=== PATIENT | male | born 1985 | race Caucasian/White ===

== ENCOUNTER → 2017-06-28 08:32 | Outpatient (CLI) | payer OTHER, SELFPAY ==
--- NOTE | 2017-06-28 08:41 | US_ITS ---
STUDY: SCROTUM ULTRASOUND REASON FOR EXAM: Male, 31 years old. PATIENT HAD AN EPISODE OF TORSION/DETORSION WHILE ON VACATION IN [place]. HE WENT TO E.R.- NO SURGERY WAS DONE. HE STATES THEY SAID HE HAD A MASS. TECHNIQUE: Ultrasound evaluation of the scrotum was performed with color Doppler and static brown-scale imaging. COMPARISON: None. FINDINGS: RIGHT TESTICLE INTRATESTICULAR: There is a normal size of the right testicle. The right testicle measures 3.7X2.2 cm. There is a homogenous echotexture. There is normal arterial and normal venous vascularity. There is no demonstrated right testicular mass or cyst. EXTRATESTICULAR: The epididymis is normal in size. The epididymis head measures 1.3X1.1X1.3 cm. There is normal vascularity of the epididymis. There is a well-defined cystic structure within the epididymis, without internal echoes, consistent with an epididymal cyst. This appears complex with internal septations. This measures 7 x 6 mm. It also appears exophytic. There is a small hydrocele. There is no demonstrated varicocele. There is no demonstrated extratesticular mass or cyst. LEFT TESTICLE INTRATESTICULAR: There is a normal size of the left testicle. The left testicle measures 4.2X3.9X2.5 cm. There is a homogenous echotexture. There is normal arterial and normal venous vascularity. Intratesticular hypoechoic nodule measuring 21 x 17 mm. This may be a focus of previous infarction. It has irregular borders. There are no calcifications. There is no doppler flow within the mass. EXTRATESTICULAR: The epididymis is normal in size. The epididymis head measures 1.2X1.3X1 cm. There is normal vascularity of the epididymis. There is no demonstrated epididymal cystic structure. There is a small hydrocele. There is no demonstrated varicocele. There is no demonstrated extratesticular mass or cyst. US/Testicular with Arterial Flow IMPRESSION: Right epididymal cyst. This appears to be a complex cyst. Small bilateral hydroceles. No evidence for testicular torsion. Mass noted in the left testicle. The patient has a history of a mass. This may be related to prior infarction. However the differential would also include granulomatous orchitis vs intratesticular abscess. Electronically Signed: Sixto Ortega MD at 17:44 EDT , Service support ,
== END ==
PROVIDERS: Family Provider Family Medicine; PCP Family Medicine; Visit Provider Urology
DX: N43.3 Hydrocele, unspecified (principal)
CPT/HCPCS: 76870; 93976

== ENCOUNTER → 2017-07-04 08:59 | Outpatient (CLI) | payer OTHER, SELFPAY ==
[2017-07-04 09:47] LABS: LDH 169 U/L (87-241)
--- NOTE | 2017-07-04 10:49 | CT_ITS ---
STUDY: CT ABDOMEN AND PELVIS WITH AND WITHOUT CONTRAST REASON FOR EXAM: Male, 31 years old. Left testicular mass. RADIATION DOSAGE (If Supplied By Facility): CTDIvol = ( 19.63 ) mGy, DLP = ( 1749.34 ) mGycm TECHNIQUE: Transaxial images were obtained from the dome of the diaphragm to the symphysis pubis with oral contrast. 100 ml of Isovue 300 contrast was administered. Sagittal and coronal images were reconstructed. Individualized dose optimization techniques were used for this CT. COMPARISON: None. FINDINGS: The visualized lung bases are unremarkable. The visualized portions of the heart are within normal limits. Normal liver. Normal gallbladder and extrahepatic biliary system. Normal spleen. Normal pancreas. Normal bilateral adrenal glands. Normal right kidney. Normal left kidney. There is a small hiatal hernia. Normal small intestine. Normal colon. The appendix is visualized and appears normal. Normal abdominal aorta. Normal inferior vena cava. Normal retroperitoneum. Normal urinary bladder. Small bilateral hydroceles. Normal abdominal wall. Normal osseous structures. CT/CT Abd/Pelvis W/WO Contrast IMPRESSION: Normal unenhanced and enhanced CT of the abdomen and pelvis. Electronically Signed: Jordan Cagle MD at 13:41 EDT Tel [phone], Service support ,
[2017-07-05 11:14] LABS: HCG BETA-SUBUNIT QUANT. < 1 mIU/mL (0-3)
[2017-07-05 11:29] LABS: AFP, Tumor Marker 6.2 ng/mL (0.0-8.3)
== END ==
PROVIDERS: Family Provider Family Medicine; PCP Family Medicine; Visit Provider Urology
DX: N50.9 Disorder of male genital organs, unspecified (principal); K44.9 Diaphragmatic hernia without obstruction or gangrene; N43.3 Hydrocele, unspecified
CPT/HCPCS: 36415; 74178; 82105; 83615; 84702; Q9967

== ENCOUNTER 2017-07-05 13:55 | Day surgery (SDC) | payer OTHER, SELFPAY ==
[2017-07-05] VITALS (7 sets, daily range): BP systolic 122–135; BP diastolic 80–97; PULSE 69–86; RESP 16; TEMP 36.4–37.3; O2SAT 94–100; BMI 26.2
--- NOTE | 2017-07-05 | TEST_PTH ---
PATIENT: YOAN OLSEN LOC: [facility] [place] U#:[id number] AGE/SX: 31/M ROOM: RE07/05/[address]: Dr. Cody Jimenez MD : 1985 BED: DIS: 07/05/2017 SPEC #: [id number] RECD: 07/05/17 15:49 STATUS: ISRRAEL MAYRA #: [id number] ALVERTO: 07/05/17 00:[address]: Cody Jimenez DEPT: SURGICAL PATHOLOGY RECD BY: Gisele Dukes ENTERED: 07/06/17 07:41 SP TYPE: TESTICLE OTHR DR: Dr. Fei Woodruff MD Tissues: Testis, NOS Procedures: Frozen Section (charge) Surgery Specimen Level V Frozen (no charge) HEADER OPERATION: Left radical orchiectomy, inguinal approach; right orchiopexy PRE-OP DIAGNOSIS: Left testicular mass TISSUE SUBMITTED: Left testicular mass ? sent to lab for FS at 1546 FROZEN SECTION DIAGNOSIS Left testicle, orchiectomy: Focus of organizing hemorrhage. No evidence of malignancy. AM:latasha 07/05/17 MICROSCOPIC DIAGNOSIS Left testicle, orchiectomy: Two foci of organizing hemorrhage (1.5cms and 1 cm in greatest dimension respectively). Margins of excision with no significant pathologic change. No evidence of malignancy. AM:latasha 07/07/17 COMMENT Normal spermatogenesis is present. No neoplastic process is identified. Case has been reviewed in consultation with Dr. Franco who concurs with the above diagnosis. IDC:SJ MICROSCOPIC DESCRIPTION Slides are reviewed. GROSS DESCRIPTION Received fresh for frozen section consultation labeled with the patient's name is a specimen designated testis. The specimen consists of a testis with attached portions of distal vas deferens and soft tissue. The specimen measures 5.5 x 5 x 3 cm and weighs 58.2 gm. The external surface is inked and the specimen is serially sectioned to reveal a parenchymal hemorrhage area measuring 1.5 x 1.5 x 1 cm. A outside dealer sales representative section of this area is submitted for frozen section consultation (cassette 1). The specimen is left for additional fixation. / AM:latasha 07/05/17 Sections also reveal a second area of circumscribed hemorrhage measuring 1 cm in greatest dimension. This is separate from the previously described area of hemorrhage. More outside dealer sales representative sections are submitted as follows: 2 ? resection margin, spermatic cord and vas deferens, 3 ? more sections of spermatic cord, 4 ? epididymitis, 5-7 ? rest of the hemorrhagic area described first, 8 & 9 ? second area of hemorrhage, entirely submitted, 10 - outside dealer sales representative sections from the other areas. / SJ:latasha 07/06/17 TC:5 CPT: 47213, 83750
[2017-07-05] MEDS: Cefazolin 2 GM in 0.9% Normal Saline 100 ML IV (15:02)
[2017-07-05] MEDS: Bupivacaine Mpf 0.5% 30 ML VIAL (15:40)
--- NOTE | 2017-07-05 16:24 | PCM.OPRPT ---
Problem List (1) Mass of left testicle Status: Acute Report of Operation Date of Procedure: 07/05/17 Pre-Operative Diagnosis: Left testicular mass, history of possible torsion Post-Operative Diagnosis: Hemorrhage in the left testicle, Surgery/Procedure Performed:: Left inguinal radical orchiectomy, right scrotal orchiopexy Description of Surgical Findings:: 31-year-old male who came to my office somewhat a confusing story history of severe pain in the left testicle ultrasound was done right after this that demonstrated a mass. We did a follow-up ultrasound to confirm the still has a mass unclear what this mass was in the office I talked about the options of treatment and the possibility that this mass could be a benign process also talked about this mass could be a malignant process like a testicular cancer. We did have preoperative tumor markers drawn which were all negative, he did a preoperative CT scan which is normal. Today we underwent anesthesia and is can undergo a left radical orchiectomy again he understands possible that this could be a benign process also possible this could be malignant process discussed with the patient may be difficult to get any definitive imaging studies to confirm. We could do watchful waiting but it turned out to be cancer that we did take the risk that we could allow the cancer to spread so because of this recommended we proceed with a radical orchiectomy for definitive treatment. 31-year-old male taken back to the operating room after smooth induction of general anesthesia the left groin areas was shaved prepped and draped in usual sterile fashion the scrotum was also prepped in the field made an incision over the left inguinal area dissected down to the spermatic cord on the left side brought out the spermatic cord perform a high ligation of the spermatic cord then delivered the testicle into the field from below dissected the testicle off the scrotum went through these spermatic cord and the above blood vessels to the testicle with meticulous dissection using free ties 0 Vicryl and silk free ties. Also did some extra free ties around the entire cord there was no bleeding from the cord the testicle was removed and sent off for pathology for frozen section. Pathologist called back in the room about 20 minutes later and reported that the mass in the testicle was a hemorrhage therefore that point I was convinced that most likely the patient had a torsion event may have caused the hemorrhage the mass in the testicle and since he had a torsion event on his left testicle which was removed I went ahead and performed a right orchiopexy after speaking to his family members. I made an incision over the right testicle dissected down to the dartos layer open up the tunica deliver the testicle excised the appendage of the epididymis and the end of the testicle itself and then very carefully the 3 point fixation of the right testicle into the scrotum to prevent any twisting or fixation of the testicle to prevent any twisting or torsion of the remaining testicle. We then closed the inguinal incision with subcuticular stitches interrupted Vicryl and closed the skin with Monocryl stitches closed the scrotal incision with subcuticular stitches and chromic and closed the skin with Monocryl after all the incisions were closed with Steri-Strips are placed on the inguinal incision fluffs and scrotal support were placed on the testicular incision patient was awake and the family was aware of the diagnosis and I will have a follow-up appoint with me in a few weeks. Type of Anesthesia:: General Drains: none - Admit VTE Documentation VTE Present on Admission: No VTE Mechan Device Prophylaxis: SCD's
--- NOTE | 2017-07-05 16:34 | PCM.DC.URO ---
Discharge Diet: Light diet - advance as tolerated Discharge Activity: May not drive while taking narcotic pain medications., May Shower May shower in (days): 1 Lifting Restrictions: no lifting or exercising. Call your doctor if your incision/area has: Continuous Slow Oozing, Sudden Increased Bleeding, Increased Pain/ Swelling, Increased Redness, Foul Smelling Discharge, Swelling at the incision site Call your doctor if you observe: Fever of 101 or Higher Suture Line Care: Avoid Pulling/Pushing, Avoid Pinching/Bending Instructions: Radical Orchiectomy Additional Instructions: wear scrotal support Allergies/Adverse Reactions: Allergies No Known Allergies Allergy (Verified 07/04/17 16:25) Medications to take at Discharge Docusate Sodium [Colace] 100 mg PO BID PRN PRN #20 cap 07/05/17 Hydrocodone/Acetaminophen [[place] 5-325 Tablet] 1 ea PO Q4H PRN PRN 5 Days tab 07/05/17 Primary Care Physician: Fei Woodruff MD [Primary Care Provider] - Please Follow Up With: Cody Jimenez MD - call if need to change appt. When: MondayJuly 17 at 10:45 am.
--- NOTE | 2017-07-05 16:39 | DCINST_ITS ---
Discharge Diet: Light diet - advance as tolerated Discharge Activity: May not drive while taking narcotic pain medications., May Shower May shower in (days): 1 Lifting Restrictions: no lifting or exercising. Call your doctor if your incision/area has: Continuous Slow Oozing, Sudden Increased Bleeding, Increased Pain/ Swelling, Increased Redness, Foul Smelling Discharge, Swelling at the incision site Call your doctor if you observe: Fever of 101 or Higher Suture Line Care: Avoid Pulling/Pushing, Avoid Pinching/Bending Instructions: Radical Orchiectomy Additional Instructions: wear scrotal support Allergies/Adverse Reactions: Allergies No Known Allergies Allergy (Verified 07/04/17 16:25) Medications to take at Discharge Docusate Sodium [Colace] 100 mg PO BID PRN PRN #20 cap 07/05/17 Hydrocodone/Acetaminophen [[place] 5-325 Tablet] 1 ea PO Q4H PRN PRN 5 Days tab 07/05/17 Primary Care Physician: Fei Woodruff MD [Primary Care Provider] - Please Follow Up With: Cody Jimenez MD - call if need to change appt. When: MondayJuly 17 at 10:45 am.
== END 2017-07-05 18:45 | disposition home or self-care (01) ==
LOC: SDC 13:55 → AC 13:57
PROVIDERS: Family Provider Family Medicine; PCP Family Medicine; Visit Provider Urology
PROC: (CPT 54530; principal; 2017-07-05 15:40)
DX: N50.1 Vascular disorders of male genital organs (principal)
CPT/HCPCS: 54530; 88307; 88309; 88331; J3010; J7120; J2405